=== PATIENT | male | born 1970 | race Caucasian/White ===

== ENCOUNTER 2018-09-23 06:17 | Inpatient (IN) | payer BC, OTHER ==
--- NOTE | 2018-09-08 11:41 | HP ---
DATE OF ADMISSION: 09/23/2018 DATE OF DICTATION: 06/09/2018 REASON FOR ADMISSION: Chronically incarcerated ventral hernia. BRIEF HISTORY: This is a 48-year-old gentleman who on April 22, 2018, was lifting heavy window panels. He had subsequently dropped one and then felt this sharp pain in his abdomen with radiation into the left groin region. He felt a tearing sensation as well. This was not associated with nausea or vomiting. The incident occurred at [facility] [address] [place] [address] in [place], [place]. Patient was evaluated by his primary care physician and underwent a CT of the abdomen and pelvis. This CT was performed at [facility]. The CT demonstrated no intraabdominal pathology. Due to the pain that he had in the left groin and testicular region, he underwent an ultrasound. The ultrasound demonstrated a small left-sided hydrocele and a varicocele. He also had epididymitis noted on the ultrasound. There were no other suspicious findings sonographically noted. At this present time, the patient still has pain in the mid abdomen from that event, and he still feels like a weakness in his mid abdomen. He notices a lump in the area, that has gotten significantly larger since the event. He has had no nausea, no vomiting. He still has discomfort that emanates in the mid abdomen, radiates into the left groin. Patient was treated for epididymitis with antibiotics and left groin discomfort that improved, but he still has some mild discomfort that is related to the discomfort in his mid abdomen. PAST MEDICAL HISTORY: Significant for hypertension, hypercholesterolemia. No coronary disease or diabetes. PAST SURGICAL HISTORY: Patient has had hip surgery, shoulder surgery. ALLERGIES: None. MEDICATIONS: Cozaar and oxycodone. 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 Does not smoke. He drinks socially. PHYSICAL EXAMINATION: Patient examined in the erect and supine position. He has a midline diastasis from xiphoid to umbilicus. He has no obvious inguinal hernias noted in either groin. His scrotum and testicles are within normal limits. He has no pubalgia in either groin as well. He has no pain with flexion, extension, internal and external rotation at the hip level on either side. He has a chronically incarcerated ventral hernia noted. It is noted to be in the midline. The hernia caused him discomfort. The actual defects are not appreciated due to its chronically incarcerated nature. IMPRESSION/PLAN: Chronically incarcerated ventral hernia. This is a 40-year-old gentleman who developed a sharp pain and a ripping sensation in his mid abdomen after lifting and dropping some heavy window panels. He, since that event, has had progressive bulge in the mid abdomen, and occasionally, he has discomfort in the left groin. I do not think the discomfort in the left groin is related to his hernia, and this was conveyed to the patient. With regard to the hernia, this should be repaired, and at this time, we have discussed the various approaches such as open, laparoscopic, and robotic. Patient will be scheduled for an open ventral hernia repair with mesh with the intent of placing the mesh in a retrorectus location. Depending on the size of the hole at the time of surgery, he may require bilateral component separation as well. The indications, alternatives, and complications discussed. Questions answered. We will plan to obtain written consent the day of surgery. SUJEY DALLAS M.D. [id number]
[2018-09-09 11:44] VITALS: BMI 36.6
[2018-09-23] MEDS ORDERED: TAMSULOSIN HCL 0.4 MG CAP ONE (06:43)
[2018-09-23] MEDS ORDERED: PROPOFOL 20 ML ONE ×2 (07:20→08:07)
[2018-09-23] MEDS ORDERED: SUCCINYLCHOLINE CHLORIDE 200 MG/10 ML VIAL ONE (07:20)
[2018-09-23] MEDS ORDERED: ROCURONIUM BROMIDE 50 MG/5 ML VIAL ONE ×2 (07:20→08:45)
[2018-09-23] MEDS ORDERED: KETAMINE HCL 200 MG/20 ML VIAL ONE (07:20)
[2018-09-23] MEDS ORDERED: DEXAMETHASONE SOD PHOSPHATE 4 MG/1 ML VIAL ONE (07:21)
[2018-09-23] MEDS ORDERED: ONDANSETRON 4 MG/2 ML VIAL ONE (07:21)
[2018-09-23] MEDS ORDERED: LIDOCAINE HCL/PF 2% SDV 5ML VIAL ONE (07:21)
[2018-09-23] MEDS ORDERED: ceFAZolin SODIUM 1 GM VIAL ONE (07:21)
[2018-09-23] MEDS ORDERED: DEXAMETHASONE SOD PHOSPHATE/PF 10 MG/ML SDV ONE ×2 (07:34→07:46)
[2018-09-23] MEDS ORDERED: MIDAZOLAM HCL 2 MG/2 ML SINGLE DOSE VIAL ONE (07:35)
[2018-09-23] MEDS ORDERED: ROPIVACAINE HCL 0.5% 30ML VIAL ONE (07:35)
[2018-09-23] MEDS ORDERED: ePHEDrine SULFATE 50 MG/1 ML AMPULE ONE (08:40)
[2018-09-23] MEDS ORDERED: SODIUM CHLORIDE 0.9% P/F 10 ML VIAL IJ ONE (08:41)
[2018-09-23] MEDS ORDERED: KETOROLAC TROMETHAMINE 30 MG/1 ML VIAL ONE (08:44)
[2018-09-23] MEDS ORDERED: NEOSTIGMINE METHYLSULFATE 0.5 MG/ML - 10 ML MDV ONE (08:50)
[2018-09-23] MEDS ORDERED: GLYCOPYRROLATE 0.2 MG/1 ML VIAL ONE (08:51)
[2018-09-23] MEDS ORDERED: DESFLURANE GAS 240 ML BOTTLE IH ONE (09:15)
[2018-09-23] MEDS ORDERED: MORPHINE SULFATE 10 MG/1 ML *VIAL IVPB PRN (09:37)
[2018-09-23] MEDS ORDERED: IBUPROFEN 800 MG/8 ML IJ IVPB PRN (09:39)
[2018-09-23] MEDS ORDERED: D5-1/2NS+20 MEQ KCL - 20 MEQ/1,000 ML INFUS.BAG IV SCH (09:45)
[2018-09-23] MEDS ORDERED: ACETAMINOPHEN 325 MG TABLET (FP) PO PRN (09:46)
[2018-09-23] MEDS ORDERED: ACETAMINOPHEN 1000 MG/100 ML VIAL (NON FORMULARY) IVPB ONE ×2 (09:50→11:51)
[2018-09-23] MEDS ORDERED: ACETAMINOPHEN INJECTION 100 ML IVPB ONE (09:50)
[2018-09-23] MEDS ORDERED: PANTOPRAZOLE SODIUM 40 MG VIAL IVPUSH SCH (10:00)
[2018-09-23] MEDS ORDERED: ONDANSETRON 4 MG/2 ML VIAL IVPUSH PRN (10:03)
[2018-09-23] MEDS ORDERED: PANTOPRAZOLE SODIUM 40 MG VIAL IVPUSH ONE (10:05)
[2018-09-23] MEDS ORDERED: LACTATED RINGERS SOLUTION 1,000 ML IV SCH (10:15)
[2018-09-23] MEDS: oxyCODONE HCL 5 MG TABLET PO PRN ×3 (12:30→21:23)
[2018-09-23] MEDS: ACETAMINOPHEN 325 MG TABLET (FP) PO PRN (17:22)
[2018-09-24] MEDS: oxyCODONE HCL 5 MG TABLET PO PRN ×2 (03:04→09:35)
[2018-09-24] MEDS ORDERED: ENOXAPARIN NA (PORCINE) 40 MG/0.4 ML DISP.SYRIN SQ SCH (06:00)
[2018-09-24 06:53] VITALS: BP 127/69; PULSE 63; TEMP 97.8
[2018-09-24] MEDS: ACETAMINOPHEN 325 MG TABLET (FP) PO PRN (09:22)
[2018-09-24] MEDS ORDERED: LOSARTAN POTASSIUM 50 MG TABLET (FP) PO SCH (10:00)
[2018-09-24] MEDS ORDERED: ATORVASTATIN CA 10 MG TABLET (FP) PO SCH (10:00)
--- NOTE | 2018-09-24 15:21 | OP ---
DATE OF OPERATION: 09/23/2018 PREOPERATIVE DIAGNOSIS: Chronically incarcerated ventral hernia. POSTOPERATIVE DIAGNOSIS: Chronically incarcerated ventral hernia. PROCEDURE: Open bilateral component separation, repair of complex chronically incarcerated ventral hernia with mesh. SURGEON: Augusto Montilla MD SYNTHETIC SOIL BLOCKS PULPER: Km Finnegan DO ANESTHESIA: Nate Crowder MD (general). ESTIMATED BLOOD LOSS: Minimal. SPECIMEN: None. INDICATIONS/PROCEDURE: This is a 48-year-old gentleman who developed a chronically incarcerated ventral hernia that is causing him discomfort. He wished to have this repaired. Patient was identified and appropriately positioned on the operating room table. After placement of general anesthesia, the abdomen was prepped and draped in the usual sterile fashion with ChloraPrep. A midline incision was made deep the subcutaneous tissue. The hernia was dissected free from the dermis and subcutaneous tissue down to the level of the fascia circumferentially. The fascia was then subsequently divided over the rectus on either side and connected in the midline. The rectus muscle on the right was then off the posterior sheath with blunt dissection, and dissection was taken out laterally to the perforating vessels. The transversus was subsequently scored just medial to the perforating vessels and off the rectus and the obliques. This was done approximately 5 inches above and below the actual defect. This was done with the cautery and sharply as needed. Once the myofascial separation on the right was completed, a similar approach was used on the left side, and again, the muscle was off the posterior sheath with blunt dissection down laterally to the perforating vessels. The transversus just medial to the perforating vessels was subsequently divided with cautery and sharply, and the myofascial separation ensued approximately 5 inches above and below the actual defect. It was connected in the midline on both sides superiorly and inferiorly, and the defect was measured. A large 15 x 15 piece of ProGrip was used for the operative repair along with a 6 x 10 piece of CAT Bio OviTex cord. The 2 pieces of mesh were sewn together in the hybrid fashion with interrupted 3-0 Vicryl sutures. The OviTex was placed on the transversus side, and the ProGrip was placed along the rectus side. The mesh placed into the retrorectus position fanned out medially, laterally, superiorly, and inferiorly, and then anchored with a multitude of AbsorbaTack. We also used several ProGrip ProTacks, as well, since in the upper abdomen, the tissue was so thin that it was not able to hold the AbsorbaTack. Next, the mesh was then irrigated, the operative field noted to be hemostatic. The fascia was reapproximated with a running 0 PDS suture placed in a 4-to-1 configuration. The subcutaneous space irrigated. The skin closed with nell followed by Dermabond. At the conclusion of this case, sponge and instrument counts were correct. ATTESTATION: Brief operative note handwritten on the preprinted form. [facility] queried prior to giving any narcotics. Eleanor VAZQUEZ [id number] cc: Dr. Nikki FELTON
--- NOTE | 2018-09-24 15:22 | DS ---
DATE OF ADMISSION: 09/23/2018 DATE OF DISCHARGE: 09/24/2018 ADMITTING DIAGNOSIS: Complex ventral hernia with preexisting hyperlipidemia, hypertension. BRIEF HISTORY: This is a 48-year-old male who presented to [facility] for surgical management of a complex ventral hernia. He underwent repair of that hernia utilizing component separation, myofascial release, and mesh on September 23. Please reference Dr. Augusto Olson operative note for further details. Postoperatively, he did well. He received morphine and Percocet as needed. At the time of his discharge, he is able to ambulate and walk. He has no fever. His abdomen is soft. His incision is clean without signs of infection. PLAN: The patient will be discharged. He has a new prescription for Percocet which will be taken as needed for pain. He will resume his usual home medications of losartan and Lipitor. He will follow with Dr. Montilla in approximately 2 weeks time to be evaluated for staple removal. He is okay to walk, okay to climb stairs. He will not lift more than 20 pounds. 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 DO SELINA MUNOZ/[id number]
== END 2018-09-24 11:31 | disposition home or self-care (01) | DRG 227 ==
LOC: FASUSAT 06:17 → FASU 06:17 → FM/S 09:37
PROVIDERS: ADMIT Surgery; ATTEND Surgery
PROC: 0WUF0JZ Supplement Abdominal Wall with Synthetic Substitute, Open Approach (ICD-10-PCS; principal; 2018-09-23 08:23)
DX: K43.6 Other and unspecified ventral hernia with obstruction, without gangrene (principal)
CPT/HCPCS: 94760; J0131